=== PATIENT | male | born 1990 | race African-American/Black ===

== ENCOUNTER 2019-09-09 18:33 | Emergency (ER) | payer SELFPAY ==
[~2019-09-09] VITALS: Ht 185.4 cm; Wt 91.0 kg
[2019-09-09 20:10] VITALS: BP 134/74
== END 2019-09-09 20:11 | disposition home or self-care (01) ==
LOC: ER 18:33
DX: F41.9 Anxiety disorder, unspecified (principal)
CPT/HCPCS: 99283